=== PATIENT | female | born 1980 | race African-American/Black ===

== ENCOUNTER 2022-02-10 10:35 | Emergency (ER) | payer MEDICAID ==
[~2022-02-10] VITALS: Ht 165.1 cm; Wt 70.0 kg
[2022-02-10] MEDS ORDERED: ACETAMINOPHEN 325MG TABLET PO PRN (11:00)
[2022-02-10 11:20] LABS: BASOPHILS % 0.7 % (0.0-2.0); HEMATOCRIT. 34.6 % (36.0-48.0); HEMOGLOBIN. 11.9 g/dL (12.0-16.0); LYMPHOCYTES % 39.4 % (20.0-50.0); MEAN CORPUSCULAR HEMOGLOBIN 31.8 pg (28.0-32.0); MEAN CORPUSCULAR VOLUME 92.3 fL (81.0-99.0); MEAN PLATELET VOLUME 7.3 fl (7.4-10.4); MONOCYTES % 4.5 % (2.0-8.0); NEUTROPHILS % 54.4 % (40.0-76.0); PLATELET 277 x1000/uL (130-400); RED BLOOD CELL COUNT 3.75 mill/uL (4.2-5.4); RED CELL DISTRIBUTION WIDTH 13.7 % (11.6-14.6)
[2022-02-10 11:28] LABS: CHLORIDE 107 mEq/L (98-107)
[2022-02-10 12:13] LABS: B-HCG QUANTITATIVE 7985 mIU/mL (<3)
[2022-02-10] MEDS ORDERED: ONDANSETRON HCL 4MG/2ML INJ IV ONE (12:15)
[2022-02-10 15:39] VITALS: BP 116/80
[2022-02-10] MEDS ORDERED: MIDAZOLAM HCL 2 MG/2 ML VIAL ONE (15:57)
[2022-02-10] MEDS ORDERED: LIDOCAINE HCL 1% 10 MG/ML 10ML VIAL ONE (15:57)
[2022-02-10] MEDS ORDERED: FENTANYL CITRATE/PF 50MCG/ML 2ML VIAL ONE (15:57)
[2022-02-10] MEDS ORDERED: PROPOFOL 200MG/20ML VIAL IV ONE (15:57)
[2022-02-10] MEDS ORDERED: ONDANSETRON HCL 4MG/2ML INJ IV PRN (16:15)
[2022-02-10] MEDS ORDERED: HYDROMORPHONE HCL/PF 2MG/ML CPJ IV PRN (16:15)
[2022-02-10] MEDS ORDERED: DEXAMETHASONE 4MG/ML 1ML VIAL ONE (17:02)
[2022-02-10] MEDS ORDERED: ONDANSETRON HCL 4MG/2ML INJ ONE (17:02)
[2022-02-10] MEDS ORDERED: OXYTOCIN 10 UNITS/ML 1ML ONE (17:20)
[2022-02-10] MEDS ORDERED: IBUPROFEN 600MG TABLET PO NR (17:45)
== END 2022-02-10 16:34 | disposition admitted as inpatient to this hospital (09) ==
LOC: ER 10:35 → EDBEDREQ 16:36 → EDBEDREQTM 16:37
DX: O03.4 Incomplete spontaneous abortion without complication (principal); O98.512 Other viral diseases complicating pregnancy, second trimester; Z20.822 Contact with and (suspected) exposure to COVID-19; Z3A.16 16 weeks gestation of pregnancy
CPT/HCPCS: 36415; 76830; 76856; 80053; 84702; 85025; 85610; 86850; 86900; 86901; 87426; 88305; 96374; 99284; A4217; C9803; J1100; J2250; J2405; J2704; J3010; J3490; Z7610